=== PATIENT | male | born 1985 | race Caucasian/White ===

== ENCOUNTER 2017-07-29 22:10 | Emergency (ER) | payer MEDICAID ==
[~2017-07-29] VITALS: Ht 182.9 cm; Wt 73.5 kg
[2017-07-29 22:52] VITALS: BP 113/67; Ht 182.9 cm; Wt 73.5 kg
== END 2017-07-30 05:49 | disposition left against medical advice (07) ==
LOC: ED 22:10
DX: Z53.21 Procedure and treatment not carried out due to patient leaving prior to being seen by health care provider (principal)